=== PATIENT | female | born 1980 | race African-American/Black ===

== ENCOUNTER 2016-06-15 19:48 | Emergency (ER) | payer OTHER ==
--- NOTE | 2016-06-15 21:23 | PROVIDER DOCUMENTATION ---
HPI-Musculoskeletal Pain/Inj - GENERAL Source: patient - HX OF PRESENT ILLNESS-MUSKULOSKELTAL Quality of Pain: reports: aching Severity in ED: mild Onset/Duration: 4 days ago Timing: still present Modifying Factors: improves with: nothing Any recent injury?: No Locality of Occurance: Home Similar Symptoms Previously?: No Recently seen or treated by another doctor?: Yes (06/12/16) - BACK & NECK PAIN/INJURY Back/Neck Pain Location: reports: lumbar spine Back/Neck Pain Radiation: reports: Upper Legs Context / Method of Injury: reports: unknown Associated Symptoms: reports: denies symptoms History of Chronic Neck or Back Pain?: No <Elinor Pepper - Last Filed: 06/15/16 21:19> <Lona Kaba - Last Filed: 06/15/16 21:28> - GENERAL Chief Complaint: Back Pain Stated Complaint: FLANK/BACK PAIN Time Seen by Provider: 06/15/16 21:20 - HX OF PRESENT ILLNESS-MUSKULOSKELTAL Nature of Presenting Problem: 36 year old F presents to the ED with a cc of back pain x4 days ago. PT states that it is now spreading to right leg. (Elinor Pepper) Review of Systems - Adult - REVIEW OF SYSTEMS - ADULT Constitutional: denies: chills, fever Gastrointestinal: denies: nausea, vomiting Genitourinary: denies: dysuria, hematuria Musculoskeletal: reports: back pain. denies: neck pain Integumentary: denies: skin sores/ulcer, skin thickening <Elinor Pepper - Last Filed: 06/15/16 21:19> Past History - Adult - PAST MEDICAL HISTORY-ADULT Review of Records: reports: Nursing Assessment Review, Medications Reviewed Major Childhood Illnesses: reports: denies history Cardiovascular: reports: HTN Psychiatric: reports: anxiety - PRIOR SURGERIES/PROCEDURES Surgical/Procedure History: reports: BTL, - PRIOR HOSPITALIZATIONS Prior Hospitalizations: reports: none - IMMUNIZATION STATUS Childhood Immunizations: See Nurse Assessment Flu Vaccine: See Nurse Assessment - FAMILY HISTORY Family History: reviewed, not pertinent - SOCIAL HISTORY Smoking: non-smoker Substance Use: none/never Alcohol Use Frequency: never <Elinor Pepper - Last Filed: 06/15/16 21:19> Physical Exam-Injury Related - Physical Exam-Injury Related Initial Vital Signs Reviewed: Yes General Appearance: appears well, alert, no apparent distress Respiratory: chest non-tender, lungs clear, normal breath sounds Cardiovascular: normal peripheral pulses, regular rate, rhythm, no edema Back Exam: other (right SI joint tenderness, Marion's sign negative) Extremity: normal inspection Integumentary: normal color, warm/dry Psych/Mental Status: AL, normal mood/affect, normal thought content, normal thought process, oriented x 3 <Elinor Pepper - Last Filed: 06/15/16 21:19> Departure <Elinor Pepper - Last Filed: 06/15/16 21:19> - Departure Time of Disposition Order: 21:27 Certified Medical Emergency: Emergent <Lona Kaba - Last Filed: 06/15/16 21:28> - Departure DIAGNOSIS: Lumbago Qualifiers: Chronicity: acute Back pain laterality: right Sciatica presence: with sciatica Sciatica laterality: sciatica of right side Qualified Code(s): M54.41 - Lumbago with sciatica, right side Disposition: HOME 01 Condition: Good Additional Instructions: Use good body mechanics to prevent further pain. ED Follow Up Instructions: You have been treated by a care provider in the Emergency Department. These instructions are being provided to you so you can have an understanding of how to care for yourself upon discharge. Upon discharge from the Emergency Department, you are responsible for making arrangements for follow-up care by a physician of your choice. Take all prescribed medications as directed. Return to the Emergency Department immediately for any new or worsening symptoms. You may call the Physician Referral phone number at [phone] to obtain a list of Physicians who are taking new patients. Prescriptions: Ibuprofen 800 mg PO BID #20 tablet Methylprednisolone [Medrol Dosepak] 4 mg PO DIRECTED #1 package Methocarbamol 500 mg PO BID #20 tablet Referrals: None,PCP [Primary Care Provider] - Megan Jay MD [STAFF PHYSICIAN] - Attestation - Scribe Verification/Attestation Scribe:: Elinor Pepper Acting as Scribe for:: Lona Kaba Scribe documention review:: This chart was documented by a scribe and accurately reflects the service the provider performed and the decisions made by the provider. <Elinor Pepper - Last Filed: 06/15/16 21:19> - Physician/ Mid-level Attestation Patient care was provided by Mid-level provider (SUSTAINABILITY OFFICER/PA):: Yes Mid-level provider:: Lona Kaba Mid-level documentation review:: The Mid-level provider documentation, treatment plan and medical decision making was reviewed by the physician who agrees with all treatment and medical decision making by the MLP. <Lona Kaba - Last Filed: 06/15/16 21:28> Physician Attestation - Physician Attestation I, the provider, attest to the following statement:: Lona Kaba Physician documentation Attestation:: This documentation recorded by the scribe accurately reflects the service I personally performed and the decisions made by me. <Elinor Pepper - Last Filed: 06/15/16 21:19>
[2016-06-15] MEDS ORDERED: CATAPRES PO ONE (21:44)
[2016-06-15] MEDS ORDERED: CATAPRES ONE (21:44)
[2016-06-15 21:52] VITALS: BP 146/103
== END 2016-06-15 21:52 | disposition home or self-care (01) ==
LOC: P.ED 19:48
DX: M54.41 Lumbago with sciatica, right side (principal); M79.652 Pain in left thigh; M79.651 Pain in right thigh; R10.9 Unspecified abdominal pain; I10 Essential (primary) hypertension; F41.9 Anxiety disorder, unspecified; Z79.899 Other long term (current) drug therapy
CPT/HCPCS: 99282